=== PATIENT | female | born 1955 | race Caucasian/White ===

== ENCOUNTER → 2016-02-21 | Outpatient (CLI) | payer MEDICAID ==
--- NOTE | 2016-02-21 14:19 | US ---
EXAMINATION TYPE: US carotid duplex BILAT DATE OF EXAM: 02/21/2016 1:58 PM COMPARISON: NONE CLINICAL HISTORY: Episode of slurred speech, left sided weekness. EXAM MEASUREMENTS: RIGHT: Peak Systolic Velocity (PSV) cm/sec ----- Right CCA: 78.4 ----- Right ICA: 93.2 ----- Right ECA: 51.7 ICA/CCA ratio: 1.2 RIGHT: End Diastole cm/sec ----- Right CCA: 30.5 ----- Right ICA: 39.7 ----- Right ECA: 14.0 LEFT: Peak Systolic Velocity (PSV) cm/sec ----- Left CCA: 72.3 ----- Left ICA: 59.9 ----- Left ECA: 50.9 ICA/CCA ratio: 0.8 LEFT: End Diastole cm/sec ----- Left CCA: 28.3 ----- Left ICA: 25.3 ----- Left ECA: 12.1 VERTEBRALS (direction of flow): Right Vertebral: Antegrade Left Vertebral: Antegrade No significant velocity elevations. IMPRESSION: Mild scattered plaque without hemodynamically significant stenosis. Criteria for Assigning % of Stenosis / Diameter reduction (Estimation based on the indirect measurements of the internal carotid artery velocities (ICA PSV). 1. Normal (no stenosis)=ICA PSV < 125 cm/s: ratio < 2.0: ICA EDV<40 cm/s. 2. Less than 50% stenosis=ICA PSV < 125 cm/s: ratio < 2.0: ICA EDV<40 cm/s. 3. 50 to 69% stenosis=ICA PSV of 125 to 230 cm/s: ration 2.0 ? 4.0: ICA EDV 40-100 cm/s. 4. Greater than 70% stenosis to near occlusion= ICA PSV > 230 cm/s: ratio > 4.0: ICA EDV > 100 cm/s. 5. Near occlusion= ICA PSV velocities may be low or undetectable: variable ratio and ICA EDV. 6. Total occlusion=unable to detect flow.
== END | disposition home or self-care (01) ==
LOC: RADUSWWP 13:32
PROVIDERS: ATTEND Family Medicine
DX: I65.29 Occlusion and stenosis of unspecified carotid artery (principal); R47.81 Slurred speech; R53.1 Weakness
CPT/HCPCS: 93880

== ENCOUNTER → 2016-03-03 | Outpatient (CLI) | payer MEDICAID ==
[2016-03-03 09:46] LABS: Basophils # (A) 0.1 k/uL (0-0.2); Basophils % (A) 1 %; CH 30.7; CHCM 33.7; Eosinophils # (A) 0.3 k/uL (0-0.7); Eosinophils % (A) 6 %; HCT 42.1 % (34.0-46.0); HDW 2.29; HGB 13.7 gm/dL (11.4-16.0); Luc # (Auto) 0.06; Luc % (Auto) 1; Lymphocytes # (A) 1.4 k/uL (1.0-4.8); Lymphocytes % (A) 32 %; MCH 29.8 pg (25.0-35.0); MCHC 32.6 g/dL (31.0-37.0); MCV 91.4 fL (80.0-100.0); Mean Platelet Volume 6.9; Monocytes # (A) 0.3 k/uL (0-1.0); Monocytes % (A) 6 %; Neutrophils # (A) 2.5 k/uL (1.3-7.7); Neutrophils % (A) 54 %; RDW 12.3 % (11.5-15.5); WBC 4.5 k/uL (3.8-10.6)
--- NOTE | 2016-03-03 10:02 | CT ---
EXAMINATION TYPE: CT abdomen w con DATE OF EXAM: 03/03/2016 9:50 AM REFERENCE: Previous study dated 01/24/2012. HISTORY: I72.8 aneurysm HISTORY: Splenic artery aneurysm. REFERENCE: NONE CT DLP: 1511 mGy Automated exposure control for dose reduction was used. TECHNIQUE: Helical acquisition through the abdomen and pelvis was obtained following the oral ingesti on of with Oral Contrast and following intravenous administration of 100 ml mL of Omnipaque 300. The data was reformatted in axial, coronal and sagittal projections. FINDINGS: There is minimal atelectasis at the right lung base. There is no pleural or pericardial fl uid. Within the abdomen, the patient's splenic artery aneurysm has enlarged from 24.6 mm to 25.6 mm. This is within the areas of measurement. The gallbladder has been removed. The liver and spleen are otherw ise normal. Both adrenal glands are normal. The pancreas is unremarkable. Both kidneys demonstrate function and appear morphologically normal. There is no significant retroperitoneal adenopathy. There are scattered diverticula along the left side of the colon. There is mild thickening of several small bowel loops proximally. No free fluid and no free air is seen. There is degenerative disc disease at L5-S1. IMPRESSION: 1. STABLE SPLENIC ARTERY ANEURYSM. 2. MINIMAL, UNCOMPLICATED DIVERTICULOSIS OF THE LEFT SIDE OF THE COLON. 3. THICKENING OF SEVERAL LOOPS OF PROXIMAL SMALL BOWEL. PLEASE CORRELATE FOR ENTERITIS. 4. DEGENERATIVE DISC DISEASE, L5-S1.
[2016-03-03 10:17] LABS: ALT 31 U/L (9-52); AST 25 U/L (14-36); Alkaline Phosphatase 91 U/L (38-126); Anion Gap 11 mmol/L; Blood Urea Nitrogen 12 mg/dL (7-17); Calcium 9.7 mg/dL (8.4-10.2); Carbon Dioxide 27 mmol/L (22-30); Chloride 104 mmol/L (98-107); Cholesterol 206 mg/dL (<200); Glucose 104 mg/dL (74-99); HDL Cholesterol 69 mg/dL (40-60); Non-African American GFR(MDRD) >60 (>60 ml/min/1.73 sqM); Potassium 4.4 mmol/L (3.5-5.1); Sodium 142 mmol/L (137-145); Total Bilirubin 0.9 mg/dL (0.2-1.3); Total Protein 7.4 g/dL (6.3-8.2); Triglycerides 150 mg/dL (<150)
== END | disposition home or self-care (01) ==
LOC: RADCTMAIN 08:21
PROVIDERS: ATTEND Family Medicine
DX: I72.8 Aneurysm of other specified arteries (principal); K57.30 Diverticulosis of large intestine without perforation or abscess without bleeding; K63.89 Other specified diseases of intestine; R47.81 Slurred speech
CPT/HCPCS: 84439; 80061; 80053; 84443; 85025; 74160; 36415; Q9967

== ENCOUNTER → 2016-04-04 | Outpatient (CLI) | payer MEDICAID ==
--- NOTE | 2016-04-04 12:54 | BD ---
EXAMINATION TYPE: MG DEXA axial skeleton. DATE OF EXAM: 04/04/2016 10:17 AM COMPARISON: NONE CLINICAL HISTORY: screening osteoporosis Height: 5'6 Weight: 195 FRAX RISK QUESTIONS: Alcohol (3 or more units per day): no Family History (Parent hip fracture): no Glucocorticoids (More than 3mos): no (Ex: prednisone, prednisolone, methylprednisolone, dexamethasone, and hydrocortisone). History of Fracture in Adulthood: no Secondary Osteoporosis: 1. Type 1 Diabetes: no 2. Hyperthyroidism: no 3. Menopause before 45: yes 4. Malnutrition: no 5. Chronic liver disease: no Rheumatoid Arthritis: no Current Tobacco Use: no RISK FACTORS HISTORY OF: Family History of Osteoporosis: Postmenopausal woman: MEDICATIONS: Thyroid Medications: Which medication: Synthroid How Lon years Additional Medications: Effexor Additional History: post menopausal EXAM MEASUREMENTS: Bone mineral densitometry was performed using the [employer]. Bone mineral density as measured about the Lumbar spine is: ----- L1-L4(G/cm2): 1.033 T Score Values are as follows: ----- L2: -1.3 ----- L3:-1.0 ----- L4: -1.2 ----- L1-L4: -1.2 Bone mineral density about the R hip (g/cm2): 0.830 Bone mineral density about the L hip (g/cm2): 0.842 T Score values are as follows: -----R Neck: -1.5 -----L Neck: -1.4 -----R Intertrochanter: -1.3 -----L Intertrochanter: -1.3 IMPRESSION: Osteopenia (T Score between -2.5 and -1 as noted by T score values:L1-L4, CHERRI HIPS There is slightly increased risk of fracture and the patient may be considered for treatment. Re-Screen 1-2 years. NOTE: T-SCORE=SD OF THE YOUNG ADULT MEAN.
--- NOTE | 2016-04-05 09:39 | MM ---
Reason for exam: screening (asymptomatic). Last mammogram was performed 3 years and 1 month ago. History: Patient is postmenopausal. Took hormonal contraceptives for 6 years. Physical Findings: A clinical breast exam by your physician is recommended on an annual basis and results should be correlated with mammographic findings. MG 3D Screening Mammo W/Cad Bilateral CC and MLO view(s) were taken. Prior study comparison: February 28, 2013, bilateral digital screening mammo w/CAD. December 19, 2006, right diagnostic mammogram w/CAD. The breast tissue is almost entirely fat. There is chronic nodularity in the right breast. No significant changes when compared with prior studies. ASSESSMENT: Benign, BI-RAD 2 RECOMMENDATION: Routine screening mammogram of both breasts in 1 year.
== END | disposition home or self-care (01) ==
LOC: RADMAMWWP 09:36
PROVIDERS: ATTEND Family Medicine
DX: Z12.31 Encounter for screening mammogram for malignant neoplasm of breast (principal); M85.852 Other specified disorders of bone density and structure, left thigh; M85.851 Other specified disorders of bone density and structure, right thigh; M85.88 Other specified disorders of bone density and structure, other site
CPT/HCPCS: 77080; 77063; G0202

== ENCOUNTER → 2017-06-25 | Outpatient (CLI) | payer MEDICAID ==
[2017-06-25 11:06] LABS: Albumin 4.4 g/dL (3.5-5.0); Total Bilirubin 0.6 mg/dL (0.2-1.3)
[2017-06-25 11:17] LABS: T4, Free (Free Thyroxine) 1.04 ng/dL (0.78-2.19)
== END ==
LOC: LABWHC1 09:40
PROVIDERS: ATTEND Family Medicine
DX: E03.9 Hypothyroidism, unspecified (principal); Z13.220 Encounter for screening for lipoid disorders; Z13.29 Encounter for screening for other suspected endocrine disorder
CPT/HCPCS: 36415; 80053; 80061; 84439; 84443

== ENCOUNTER → 2017-10-23 | Outpatient (CLI) | payer MEDICAID ==
[~2017-10-23] MED LIST: REGADENOSON 0.4 MG/5 ML SYRINGE IV ONE
--- NOTE | 2017-10-23 10:36 | NM ---
EXAMINATION TYPE: NM stress lexiscan cardiolite DATE OF EXAM: 10/23/2017 COMPARISON: NONE HISTORY: Chest pain TECHNIQUE: After the intravenous administration of 10.31 mCi Tc 99m Sestamibi - Cardiolite resting S PECT images acquired 45 minutes post injection. The patient received 0.4mg Lexiscan, 25.8 mCi Tc 99m Sestamibi - Stress images obtained [address] injection FINDINGS: Review of stress and rest SPECT images demonstrates no distinct perfusion abnormality. Gated analysi s shows normal wall motion with an estimated left ventricular ejection fraction of 48 %. IMPRESSION: No scintigraphic evidence for reversible ischemia.
--- NOTE | 2017-10-23 13:06 | EST ---
EXERCISE STRESS DATE OF SERVICE: 10/23/2017 AGE: 62 SEX: Female HT: 5'7" WT: 190 PROTOCOL: Lexiscan Cardiolite STAGE: DURATION OF EXERCISE: HEART RATE REST: 56 BLOOD PRESSURE REST: 142/87 MAXIMUM HEART RATE ACHIEVED: 82 MAXIMUM BLOOD PRESSURE: 166/100 85% MPHR: 100% MPHR: METS: INDICATIONS: Chest pain. CLINICAL INFORMATION: A Lexiscan nuclear study was performed. Peak heart rate of 82 was achieved. Maximum blood pressure of 166/100 mmHg was noted. Resting EKG shows normal sinus rhythm with normal VT interval and QRS duration and normal ST-T waves. No ST-segment depression suggestive of ischemia is noted. The results of the nuclear study will follow. MMODL / IJN: [id number] /
== END ==
LOC: RADNMMAIN 08:00
PROVIDERS: ATTEND Family Medicine
DX: R07.9 Chest pain, unspecified (principal)
CPT/HCPCS: 93017; 78452; A9500; J2785

== ENCOUNTER → 2018-04-17 | Outpatient (CLI) | payer MEDICAID | END | disposition home or self-care (01) | LOC: LABWHC1 09:26 | PROVIDERS: ATTEND Ophthalmology | DX: M31.6 Other giant cell arteritis (principal) | CPT/HCPCS: 36415; 85652; 86140 ==

== ENCOUNTER → 2018-04-30 | Outpatient (CLI) | payer MEDICAID ==
--- NOTE | 2018-04-30 17:03 | MR ---
Brain MR without contrast HISTORY: Eye pressure, headache Multiplanar multisequence imaging through the brain No comparisons No restricted diffusion. There is no hemorrhage or hydrocephalus. Orbits show symmetric appearance. C erebellopontine angles, corpus callosum, pituitary, cervical medullary junction are normal. There are normal vascular flow voids. 2 or 3 deep white matter hyperintensities are present on inversion recov ely and T2-weighted weighted sequences. Paranasal sinuses are well aerated, mild mucoperiosteal thick ening in the ethmoid air cells. IMPRESSION: Nonspecific white matter demyelination of questionable clinical significance could be rel ated to chronic small vessel ischemia, hypertension, migraine headaches
== END ==
LOC: RADMRIMAIN 14:49
PROVIDERS: ATTEND Family Medicine
DX: R90.89 Other abnormal findings on diagnostic imaging of central nervous system (principal)
CPT/HCPCS: 70551

== ENCOUNTER → 2018-12-18 | Outpatient (CLI) | payer MEDICAID ==
--- NOTE | 2018-12-20 09:53 | MM ---
Reason for exam: screening (asymptomatic). Last mammogram was performed 2 years and 8 months ago. History: Patient is postmenopausal. Took hormonal contraceptives for 6 years. Physical Findings: A clinical breast exam by your physician is recommended on an annual basis and results should be correlated with mammographic findings. MG 3D Screening Mammo W/Cad Bilateral CC and MLO view(s) were taken. Prior study comparison: April 04, 2016, bilateral MG 3d screening mammo w/cad. February 28, 2013, bilateral digital screening mammo w/CAD. There is chronic nodularity in the right breast. There is no discrete abnormality. ASSESSMENT: Benign, BI-RAD 2 RECOMMENDATION: Routine screening mammogram of both breasts in 1 year.
== END | disposition home or self-care (01) ==
LOC: RADMAMWWP 15:43
PROVIDERS: ATTEND Family Medicine
DX: Z12.31 Encounter for screening mammogram for malignant neoplasm of breast (principal)
CPT/HCPCS: 77063; 77067

== ENCOUNTER → 2019-08-27 | Outpatient (CLI) | payer MEDICAID ==
--- NOTE | 2019-08-28 07:16 | XR ---
Left hand and wrist HISTORY: Trauma and pain 2 views of the left hand, 2 views of the left wrist Osteoarthritic changes are present at the distal interphalangeal joints, possible erosive osteoarthri tis. Bone mineralization is reduced. Alignment is maintained. IMPRESSION: No fracture or dislocation.
== END | disposition home or self-care (01) ==
LOC: RADXRMAIN 15:56
PROVIDERS: ATTEND Family Medicine
DX: M25.532 Pain in left wrist (principal); M25.542 Pain in joints of left hand

== ENCOUNTER → 2020-06-09 | Outpatient (CLI) | payer MEDICAID ==
[2020-06-09 11:05] LABS: Basophils # (A) 0.07 X 10*3/uL (0.00-0.10); Basophils % (A) 1.1 %; Eosinophils # (A) 0.19 X 10*3/uL (0.04-0.35); Eosinophils % (A) 2.9 %; HCT 43.3 % (37.2-46.3); HGB 13.7 g/dL (12.0-15.0); Lymphocytes # (A) 2.44 X 10*3/uL (0.90-5.00); Lymphocytes % (A) 37.5 %; MCHC 31.6 g/dL (32.0-37.0); Mean Platelet Volume 8.7 fL (9.5-12.2); Monocytes # (A) 0.46 X 10*3/uL (0.20-1.00); Monocytes % (A) 7.1 %; Neutrophils # (A) 3.33 X 10*3/uL (1.80-7.70); Neutrophils % (A) 51.1 %; Platelet Count 336 X 10*3/uL (140-440); RBC 4.56 X 10*6/uL (4.10-5.20); RDW 12.7 % (11.5-14.5); WBC 6.51 X 10*3/uL (4.50-10.00)
[2020-06-09 13:05] LABS: African American GFR (CKD) 68.9 (60.0-200.0); Albumin 4.7 g/dL (3.80-4.90); Albumin/Globulin Ratio 2.35 (1.60-3.17); Anion Gap 9.2 mmol/L (4.00-12.00); Calcium 9.7 mg/dL (8.7-10.3); Carbon Dioxide 26.8 mmol/L (21.6-31.8); Chol/HDL Ratio 3.33; LDL Cholesterol,Calculated 123.6 mg/dL (0.0-131.0); Non-African American GFR(CKD) 59.5 (60.0-200.0); Potassium 4.4 mmol/L (3.5-5.5); Total Bilirubin 0.6 mg/dL (0.3-1.2); Total Protein 6.7 g/dL (6.2-8.2); VLDL Calculation 25.4 mg/dL (5.00-40.00)
== END | disposition home or self-care (01) ==
LOC: LABWHC1 07:02
PROVIDERS: ATTEND Family Medicine
DX: E03.9 Hypothyroidism, unspecified (principal); Z13.0 Encounter for screening for diseases of the blood and blood-forming organs and certain disorders involving the immune mechanism; Z13.228 Encounter for screening for other metabolic disorders; Z13.220 Encounter for screening for lipoid disorders
CPT/HCPCS: 36415; 80053; 80061; 84443; 85025

== ENCOUNTER → 2020-07-19 | Outpatient (CLI) | payer MEDICAID ==
--- NOTE | 2020-07-21 11:50 | MM ---
Reason for exam: screening (asymptomatic). Last mammogram was performed 1 year and 7 months ago. History: Patient is postmenopausal. Took hormonal contraceptives for 6 years. Physical Findings: A clinical breast exam by your physician is recommended on an annual basis and results should be correlated with mammographic findings. MG 3D Screening Mammo W/Cad Bilateral CC and MLO view(s) were taken. Prior study comparison: December 18, 2018, bilateral MG 3d screening mammo w/cad. April 04, 2016, bilateral MG 3d screening mammo w/cad. There are scattered fibroglandular densities. There is chronic nodularity bilaterally. No significant changes when compared with prior studies. ASSESSMENT: Negative, BI-RAD 1 RECOMMENDATION: Routine screening mammogram of both breasts in 1 year.
== END | disposition home or self-care (01) ==
LOC: RADMAMWWP 16:10
PROVIDERS: ATTEND Family Medicine
DX: Z12.31 Encounter for screening mammogram for malignant neoplasm of breast (principal); Z78.0 Asymptomatic menopausal state
CPT/HCPCS: 77063; 77067

== ENCOUNTER → 2020-07-20 | Outpatient (CLI) | payer MEDICAID ==
--- NOTE | 2020-07-21 13:42 | CT ---
EXAMINATION TYPE: CT abdomen w con DATE OF EXAM: 07/20/2020 COMPARISON: 03/03/2016 INDICATION: Hx cyst drainage from kidney and splenic aneurysm DLP: 1046 mGycm, Automated exposure control for dose reduction was used. CONTRAST: 100 mL of Isovue 300. Study performed with Oral Contrast TECHNIQUE: Axial images were obtained from above the diaphragm to the iliac crest in the axial plane at 5 mm thick sections. Reconstructed images are reviewed on the computer in the coronal plane. FINDINGS: Limited CT sections are obtained the lung bases. The lung bases are clear. CT ABDOMEN: Liver: Normal Spleen: Normal. The 2.4 cm splenic artery aneurysm is stable at the splenic hilum Pancreas: . Adrenal glands: The adrenal glands are normal. Gallbladder: Surgically absent Kidneys: No masses are evident. No hydronephrosis is present. No cysts are present. Delayed images were obtained through the kidneys, which remain unremarkable. Aorta: Normal Inferior vena cava: Normal. Loops of bowel distention with oral contrast appear normal. There are loops of bowel lacking oral con trast limiting their evaluation. IMPRESSIONS: 1. Stable 2.4 cm splenic artery aneurysm. 2. No suspicious acute abdominal changes.
== END | disposition home or self-care (01) ==
LOC: RADCTMAIN 16:10
PROVIDERS: ATTEND Family Medicine
DX: I72.8 Aneurysm of other specified arteries (principal)
CPT/HCPCS: 74160; Q9967

== ENCOUNTER → 2022-01-31 | Outpatient (CLI) | payer MEDICARE ==
--- NOTE | 2022-01-31 09:11 | BD ---
EXAMINATION TYPE: Axial Bone Density DATE OF EXAM: 01/31/2022 COMPARISON: NONE CLINICAL HISTORY: 67 year old Female. ICD-10 CODE: [id number] POST MENOPAUSAL WITHOUT HRT Height: 67 Weight: 211.0 FRAX RISK QUESTIONS: Alcohol (3 or more units per day): no Family History (Parent hip fracture): no Glucocorticoids (More than 3mos): no (Ex: prednisone, prednisolone, methylprednisolone, dexamethasone, and hydrocortisone). History of Fracture in Adulthood: no Secondary Osteoporosis: 1. Type 1 Diabetes: no 2. Hyperthyroidism: no 3. Menopause before 45: yes 4. Malnutrition: no 5. Chronic liver disease: no Rheumatoid Arthritis: no Current Tobacco Use: no RISK FACTORS HISTORY OF: Surgery to Spine/Hip(right/left)/Wrist (right/left): no Family History of Osteoporosis: yes Active: yes Diet low in dairy products/other sources of calcium: no Postmenopausal woman: yes Lost more than 2 inches in height since high school: no MEDICATIONS: Additional History: EXAM MEASUREMENTS: Bone mineral densitometry was performed using the [employer]. Bone mineral density as measured about the Lumbar spine is: ----- L1-L4(G/cm2): 1.044 T Score Values are as follows: ----- L1: -1.5 ----- L2: -1.2 ----- L3: -1.5 ----- L4: -0.8 ----- L1-L4: -1.1 Bone mineral density has: increased 0.9 % since study of: 04.04.2016 Bone mineral density about the R hip (g/cm2): 0.799 Bone mineral density about the L hip (g/cm2): 0.842 T Score values are as follows: -----R Neck: -1.7 -----L Neck: -1.4 -----R Total: -1.4 -----L Total: -1.3 Bone mineral density has: decreased -4.5 % since study of: 04.04.2016 FRAX%s: The graph provided illustrates a 9.3% chance for a major osteoporotic fx and a 1.2% chance fo r the hips probability for fx in 10 years time. IMPRESSION: Osteopenia (T Score between -2.5 and -1). There is slightly increased risk of fracture and the patient may be considered for treatment. Re-Screen 2-5 years. NOTE: T-SCORE=SD OF THE YOUNG ADULT MEAN.
--- NOTE | 2022-01-31 10:59 | MM ---
Reason for Exam: Screening (asymptomatic). Last mammogram was performed 1 year(s) and 6 month(s) ago. Patient History: Menarche at age 12. First Full-Term at age 22. Left ovary removed at age 34. Right ovary removed at age 34. Hysterectomy at age 34. Postmenopausal. Patient used Hormonal Contraceptives for 6 years. Risk Values: Adriana 5 year model risk: 1.6%. NCI Lifetime model risk: 5.9%. Prior Study Comparison: 04/04/2016 Bilateral Screening Mammogram, [facility]. 12/18/2018 Bilateral Screening Mammogram, [facility]. 07/19/2020 Bilateral Screening Mammogram, [facility]. Tissue Density: There are scattered fibroglandular densities. Findings: Analyzed By CAD. There is no suspicious group of microcalcifications or new suspicious mass in either breast. No significant change from prior exams. Overall Assessment: Negative, BI-RAD 1 Management: Screening Mammogram of both breasts in 1 year. A clinical breast exam by your physician is recommended on an annual basis and results should be correlated with mammographic findings. Electronically signed and approved by: Raffy Roman D.O.
== END | disposition home or self-care (01) ==
LOC: RADMAMWWP 07:42
PROVIDERS: ATTEND Family Medicine
DX: Z12.31 Encounter for screening mammogram for malignant neoplasm of breast (principal); M85.89 Other specified disorders of bone density and structure, multiple sites; Z78.0 Asymptomatic menopausal state
CPT/HCPCS: 77063; 77067; 77080

== ENCOUNTER 2023-02-14 06:46 | Day surgery (SDC) | payer MEDICARE ==
[2023-02-08 10:13] VITALS: BMI 27.3
[~2023-02-14 06:46] MED LIST changes: +LACTATED RINGERS 1,000 ML IV SCH; +LIDOCAINE 1% (10MG/ML) FOR IV START INTRADERMA PRN; -REGADENOSON 0.4 MG/5 ML SYRINGE IV ONE
[2023-02-14] MEDS ORDERED: ONDANSETRON 4 MG/2 ML VIAL IVP PRN (07:00)
[2023-02-14] MEDS ORDERED: LIDOCAINE 1% INJ 10MG/ML (20 ML MDV) ONE (07:29)
[2023-02-14] MEDS ORDERED: PROPOFOL 10 MG/ML 20 ML VIAL IV ONE (07:29)
[2023-02-14] MEDS ORDERED: LACTATED RINGERS 1,000 ML IV ONE ×2 (07:34)
--- NOTE | 2023-02-14 07:38 | P.GSHP ---
History of Present Illness H&P Date: 02/14/23 CHIEF COMPLAINT: GERD and colon screen HISTORY OF PRESENT ILLNESS: The patient is a 68-year-old female who presents with gastroesophageal reflux disease and need for colon screen. Upper and lower endoscopy were offered for further evaluation and management. PAST MEDICAL HISTORY: Please see list. PAST SURGICAL HISTORY: Please see list. MEDICATIONS: Please see list. ALLERGIES: Please see list. SOCIAL HISTORY: No illicit drug use FAMILY HISTORY: No reports of Crohn disease or ulcerative colitis. REVIEW OF ORGAN SYSTEMS: CONSTITUTIONAL: No reports of fevers or chills. GI: Denies any blood in stools or constipation. PHYSICAL EXAM: VITAL SIGNS: Stable GENERAL: Well-developed pleasant in no acute distress. HEENT: No scleral icterus. Extraocular movements grossly intact. Moist buccal mucosa. NECK: Supple without lymphadenopathy. CHEST: Unlabored respirations. Equal bilateral excursions. CARDIOVASCULAR: Regular rate and rhythm. Distal 2+ pulses. ABDOMEN: Soft, nondistended. MUSCULOSKELETAL: No clubbing, cyanosis, or edema. ASSESSMENT: 1. Gastroesophageal reflux disease 2. Colon screen. PLAN: 1. Recommend proceeding with an upper and lower endoscopy Past Medical History History of Any Multi-Drug Resistant Organisms: None Reported Past Surgical History: Appendectomy, Cholecystectomy, Hysterectomy Additional Past Surgical History / Comment(s): carpal tunnel both hands, colonoscopy Past Anesthesia/Blood Transfusion Reactions: No Reported Reaction Additional Past Anesthesia/Blood Transfusion Reaction / Comment(s): no blood transfusion Smoking Status: Never smoker - Past Family History Father Family Medical History: Cancer Additional Family Medical History / Comment(s): prostate Medications and Allergies Home Medications Medication Instructions Recorded Confirmed Type Levothyroxine Sodium [Synthroid] 50 mcg PO QAM 04/17/14 02/14/23 History Venlafaxine HCl [Effexor] 37.5 mg PO QAM 04/17/14 02/14/23 History Multivitamin [Multivitamins Adult 1 each PO DAILY 02/08/23 02/14/23 History Gummies] Allergies Allergy/AdvReac Type Severity Reaction Status Date / Time baclofen Allergy Nausea & Verified 02/14/23 07:15 Vomiting ciprofloxacin [From Cipro] Allergy Nausea & Verified 02/14/23 07:15 Vomiting codeine Allergy Nausea & Verified 02/14/23 07:15 Vomiting Surgical - Exam Vital Signs Temp Pulse Resp BP Pulse Ox 97.7 F 88 18 144/83 95 02/14/23 07:18 02/14/23 07:18 02/14/23 07:18 02/14/23 07:18 02/14/23 07:18
[2023-02-14 07:40] VITALS: TEMP 97.7
--- NOTE | 2023-02-14 07:47 | P.PCN ---
Date of Procedure: 02/14/23 Description of Procedure: PREOPERATIVE DIAGNOSIS: Gastroesophageal reflux disease. Dysphagia POSTOPERATIVE DIAGNOSIS: Gastroesophageal reflux disease. Gastritis. Diaphragmatic hiatal hernia OPERATION: Esophagogastroduodenoscopy with biopsies along esophagus, antrum and duodenum SURGEON: Gabbie Lieberman MD ANESTHESIA: MAC. INDICATIONS: The patient is a 68-year-old female who presents with reflux disease. Benefits and risks of the procedure were described. Informed consent was obtained. DESCRIPTION: The patient was brought into the endoscopy suite and laid in the left lateral decubitus position. An Olympus gastroscope was passed along the posterior oropharynx down to the distal esophagus where the squamocolumnar junction was encountered at 33 cm from the incisors. The stomach was entered and no bile reflux was found. Additional findings are listed below. Biopsies with cold forceps were obtained of the antrum. The first through third portion of the duodenum was examined. Retroflexion of the scope confirmed Hill grade 3 lower esophageal valve. The squamocolumnar junction demonstrated LA grade B erosive esophagitis. The stomach was desufflated. The patient tolerated the procedure well. FINDINGS: Squamocolumnar junction 33 cm from the incisors. Diaphragmatic hiatus at 36 cm. Hiatal hernia, 3 cm Hill grade 3 lower esophageal valve. LA grade B erosive esophagitis. Biopsies obtained Biopsies obtained of the duodenum. Chronic gastritis with biopsies obtained. RECOMMENDATIONS: Upper endoscopy as needed. May benefit from antireflux procedure
--- NOTE | 2023-02-14 08:10 | P.PCN ---
Date of Procedure: 02/14/23 Description of Procedure: PREOPERATIVE DIAGNOSIS: Colonoscopy screening. POSTOPERATIVE DIAGNOSIS: Colonoscopy screening. Sigmoid diverticulosis Internal and external hemorrhoid, grade 4 OPERATION: Colonoscopy to the cecum, ileocecal valve and appendiceal orifice. SURGEON: Gabbie Lieberman MD. ANESTHESIA: MAC. INDICATIONS: The patient is a 60-year-old female who presents for colonoscopy screening. Benefits and risks were described and informed consent was obtained. DESCRIPTION OF PROCEDURE: The patient had undergone Suprep. The patient had been brought into the operating room and laid in the left lateral decubitus position. After adequate intravenous sedation, the rectum was examined with 2% lidocaine jelly. External hemorrhoids were encountered. The rectal tone was within normal limits. No lesions were palpated in the rectal vault. An Olympus colonoscope was advanced until the cecum, ileocecal valve and appendiceal orifice were clearly viewed. The prep was excellent. Scattered diverticulosis was encountered. No colonic polyps were found. No evidence of focal colitis was found. Retroflexion of the scope demonstrated grade 1 internal hemorrhoids without active bleeding or inflammation. The colon was desufflated. The patient had tolerated the procedure well. Withdrawal time was over 6 minutes. FINDINGS: Aronchick preparation quality scale 1 (1-5) Internal hemorrhoids, grade 4 External prolapsed hemorrhoids, grade 4 No arteriovenous malformations. No adenomatous polyps. No focal colitis. Sigmoid diverticulosis RECOMMENDATIONS: Lower endoscopy in 5 years, 2028 Plan - Discharge Summary Discharge Rx Participant: No New Discharge Prescriptions: New Omeprazole [PriLOSEC] 40 mg PO DAILY #14 cap Continue Venlafaxine HCl [Effexor] 37.5 mg PO QAM Levothyroxine Sodium [Synthroid] 50 mcg PO QAM Multivitamin [Multivitamins Adult Gummies] 1 each PO DAILY Discharge Medication List Levothyroxine Sodium [Synthroid] 50 mcg PO QAM 04/17/14 [History] Venlafaxine HCl [Effexor] 37.5 mg PO QAM 04/17/14 [History] Multivitamin [Multivitamins Adult Gummies] 1 each PO DAILY 02/08/23 [History] Omeprazole [PriLOSEC] 40 mg PO DAILY #14 cap 02/14/23 [Rx] Follow up Appointment(s)/Referral(s): Gabbie Lieberman MD [STAFF PHYSICIAN] - 02/06/24 11:00 am Patient Instructions/Handouts: Hiatal Hernia (DC), Diverticulosis Diet (GEN), Diverticulosis (GEN) Activity/Diet/Wound Care/Special Instructions: Repeat colonoscopy in 5 years, 2028 Discharge Disposition: HOME SELF-CARE
[2023-02-14 08:30] VITALS: BP 126/76; PULSE 63; RESP 14
== END 2023-02-14 09:01 | disposition home or self-care (01) ==
LOC: ORWHC2ENDO 06:46
PROVIDERS: ATTEND Surgery Plastic and Reconstructive Surgery
DX: Z12.11 Encounter for screening for malignant neoplasm of colon (principal); K57.30 Diverticulosis of large intestine without perforation or abscess without bleeding; K64.3 Fourth degree hemorrhoids; K21.00 Gastro-esophageal reflux disease with esophagitis, without bleeding; K44.9 Diaphragmatic hernia without obstruction or gangrene; K29.50 Unspecified chronic gastritis without bleeding; Z79.890 Hormone replacement therapy; Z90.49 Acquired absence of other specified parts of digestive tract; Z90.710 Acquired absence of both cervix and uterus; Z80.9 Family history of malignant neoplasm, unspecified; Z79.899 Other long term (current) drug therapy; Z88.3 Allergy status to other anti-infective agents; Z88.5 Allergy status to narcotic agent; Z88.6 Allergy status to analgesic agent
CPT/HCPCS: 88305; 43239; J2001; J2704; G0121

== ENCOUNTER → 2023-07-02 | Outpatient (CLI) | payer MEDICARE ==
[~2023-07-02] MED LIST changes: -LACTATED RINGERS 1,000 ML IV SCH; -LIDOCAINE 1% (10MG/ML) FOR IV START INTRADERMA PRN; +REGADENOSON 0.4 MG/5 ML SYRINGE IV PRN
--- NOTE | 2023-07-02 13:28 | CA ---
Lexiscan Nuclear Stress Test Report Name: Carmen Connors Exam Date: 07/02/2023 09:31 Exam Location: [facility] Ht (in): 67 Wt (lb): 195 BSA: 2.00 Ordering Phys: Merly Goncalves MD Referring Phys: MERLY GONCALVES Technologist: Marcelo Jimenes Age: 68 Gender: F : 1955 Procedure CPT: Indications: R94.31 ABNORMAL EKG ICD-10 Codes: Patient History: DIFFICULTY IN BREATHING, PALPITATIONS, NUMBNESS IN FACE/NECK, FAMILY HX OF HEART DISEASE Medications: Meds past 24 hrs: Pretest Chest Pain: STRESS TEST Lexiscan Protocol Exercise Duration (min:sec): 01:[address] Depressions (mm): Angina Score: Boyce Score: Resting HR (bpm): 62 Peak HR (bpm): 84 Resting BP (mmHg): 147 / 98 Peak BP (mmHg): 162 / 87 MPHR: 153 Target HR: 130 % MPHR: 55 METS: 1.0 Total Dose: Peak Dose: Atropine: Double Product: 05590 BP Response: Stress Termination: INFUSION COMPLETE Stress Symptoms: BACK PAIN Stress Summary: ECG ANALYSIS Resting ECG: Stress ECG: CONCLUSIONS At baseline EKG showed normal sinus rhythm, normal axis, mild T- wave inversions V3-V5. Patient recieved IV infusion of Lexiscan 0.4mg and at peak infusion EKG showed no significant change from baseline. Conclusions: 1. Nonspecific stress EKG portion secondary baseline EKG abnormalities 2. Nuclear imaging to be reported separately. Dr. Filemon Linda DO (Electronically Signed) Final Date: 02 Jul 2023 13:27
--- NOTE | 2023-07-02 16:02 | NM ---
EXAMINATION TYPE: NM stress lexiscan cardiolite DATE OF EXAM: 07/02/2023 COMPARISON: NONE HISTORY: Abnormal EKG TECHNIQUE: After the intravenous administration of 9.9 mCi Tc 99m Sestamibi - Cardiolite resting SPE CT images acquired 60 minutes post injection. At peak stress 26 mCi Tc 99m Sestamibi - Stress images obtained 35 minutes post injection The patient was stressed with 0.4mg Lexiscan. FINDINGS: No fixed defects are evident . A very small defect along the inferior lateral wall near the cardiac apex on stress images. This is reversible on resting images. Polar maps and SPECT imaging correlate. Correlate with EKG changes. Wall motion is normal Ejection fraction is calculated to be 60 %. IMPRESSION: 1. Tiny stress-induced ischemic change may be present in the inferior lateral wall near the cardiac a pex. 2. Remaining portions of the study appear unremarkable.
== END | disposition home or self-care (01) ==
LOC: RADNMMAIN 07:54
PROVIDERS: ATTEND Family Medicine
DX: I20.9 Angina pectoris, unspecified (principal); R94.31 Abnormal electrocardiogram [ECG] [EKG]; R06.02 Shortness of breath; R00.2 Palpitations; R20.2 Paresthesia of skin; Z82.49 Family history of ischemic heart disease and other diseases of the circulatory system
CPT/HCPCS: 93017; 78452; A9500; J2785

== ENCOUNTER → 2023-09-25 18:49 | Day surgery (SDC) | payer MEDICARE ==
[2023-09-25] MEDS: IOPAMIDOL-370 100ML BTL INJ ONE (14:30)
[~2023-09-25 18:49] MED LIST changes: +ACETAMINOPHEN TAB 500 MG TAB ONE; +ALPRAZolam 0.5 MG TAB ONE; +HEPARIN SODIUM 1,000 UN/ML (10ML VL) ONE; +HYDROcodone/APAP 5-325MG 1 EACH TAB ONE; +LIDOCAINE 1% INJ 10MG/ML (20 ML MDV) ONE; +MIDAZOLAM 2 MG/2 ML VIAL ONE; +ONDANSETRON 4 MG/2 ML VIAL ONE; -REGADENOSON 0.4 MG/5 ML SYRINGE IV PRN; +SODIUM CHLORIDE 0.9% 1,000 ML BAG ONE; +VERAPAMIL 2.5 MG/ML 2 ML AMP ONE; +fentaNYL (PF) 50 MCG/ML 2 ML AMP ONE
== END | disposition home or self-care (01) ==
LOC: CATHCVL 18:49
PROVIDERS: ATTEND Internal Medicine
DX: R06.02 Shortness of breath
CPT/HCPCS: 93458; 93799

== ENCOUNTER → 2024-09-08 | Outpatient (CLI) | payer MEDICARE ==
--- NOTE | 2024-09-08 08:34 | MM ---
Reason for Exam: Screening (asymptomatic). Last mammogram was performed 2 year(s) and 7 month(s) ago. Patient History: Menarche at age 12. First Full-Term at age 22. Left ovary removed at age 34. Right ovary removed at age 34. Hysterectomy at age 34. Postmenopausal. Patient used Hormonal Contraceptives for 6 years. Risk Values: Adriana 5 year model risk: 1.7%. NCI Lifetime model risk: 5.5%. Prior Study Comparison: 12/18/2018 Bilateral Screening Mammogram, [facility]. 07/19/2020 Bilateral Screening Mammogram, [facility]. 01/31/2022 Bilateral MG 3D screening mammo w/cad, [facility]. Tissue Density: There are scattered areas of fibroglandular density. Findings: Analyzed By CAD. Chronic bilateral nodularity. There is no suspicious group of microcalcifications or new suspicious mass in either breast. Overall Assessment: Benign, BI-RAD 2 Management: Screening Mammogram of both breasts in 1 year. Patient should continue monthly self-breast exams. A clinical breast exam by your physician is recommended on an annual basis. This exam should not preclude additional follow-up of suspicious palpable abnormalities. Note on Adriana scores and lifetime risk: 1. A Adriana score greater than 3% is considered moderate risk. If this is the case, consider specialist referral to assess eligibility for a risk reducing agent. 2. If overall lifetime risk for the development of breast cancer is 20% or higher, the patient may qualify for future screening with alternating mammogram and breast MRI. [facility], , 09/08/2024 8:31 AM. Electronically signed and approved by: Shelly Carvalho M.D. Radiologist
== END | disposition home or self-care (01) ==
LOC: RADMAMWWP 07:10
PROVIDERS: ATTEND Family Medicine
DX: Z12.31 Encounter for screening mammogram for malignant neoplasm of breast (principal); R92.323 Mammographic fibroglandular density, bilateral breasts; Z78.0 Asymptomatic menopausal state; Z92.0 Personal history of contraception
CPT/HCPCS: 77063; 77067